=== PATIENT | male | born 1970 | race Caucasian/White ===

== ENCOUNTER 2020-06-30 20:44 | Emergency (ER) | payer SELFPAY ==
[~2020-06-30] VITALS: Ht 167.6 cm; Wt 65.8 kg
[2020-06-30 20:47] VITALS: BP 102/59
--- NOTE | 2020-06-30 21:00 | NUR ---
Pt not cooperative with staff. Pt yelled at ER doctor. Pt refused to be seen by MD, Pt refused to give name, Pt left, walked out with steady gait, not in any distress, -sob.
== END 2020-06-30 21:00 | disposition left against medical advice (07) ==
LOC: ER 20:48
DX: R46.89 Other symptoms and signs involving appearance and behavior (principal); R22.32 Localized swelling, mass and lump, left upper limb; Z02.89 Encounter for other administrative examinations